=== PATIENT | male | born 1950 | race Two or more races ===

== ENCOUNTER 2019-03-06 22:57 | Inpatient (IN) | payer OTHER ==
[~2019-03-06] VITALS: Ht 182.9 cm; Wt 93.0 kg
[2019-03-10] MEDS ORDERED: LEVO-T25 MCG PO (11:25)
[2019-03-10] MEDS ORDERED: QUINAPRIL HCL20 MG PO (11:26)
[2019-03-10] MEDS ORDERED: CITALOPRAM HBR20 MG PO ×2 (11:26→13:27)
[2019-03-10] MEDS ORDERED: TAMSULOSIN HCL0.4 MG PO (13:27)
[2019-03-10] MEDS ORDERED: ASA-EC81 MG PO (13:27)
[2019-03-10] MEDS ORDERED: PANTOPRAZOLE SO40 MG PO (13:27)
[2019-03-10] MEDS ORDERED: LEVOTHYROXINE75 MCG PO (13:27)
[2019-03-10] MEDS ORDERED: LOSARTAN POTASS25 MG PO (13:27)
[2019-03-10] MEDS ORDERED: LIPITOR20 MG PO (13:27)
== END 2019-03-10 15:12 | disposition home or self-care (01) | DRG 884 ==
LOC: ER 22:57 → MEDI 03-07 14:34
PROVIDERS: ADMIT Internal Medicine
PROC: 4A12X4Z Monitoring of Cardiac Electrical Activity, External Approach (ICD-10-PCS; principal; 2019-03-07)
DX: F01.50 Vascular dementia, unspecified severity, without behavioral disturbance, psychotic disturbance, mood disturbance, and anxiety (principal); N17.8 Other acute kidney failure; F32.89 Other specified depressive episodes; E86.0 Dehydration; I12.9 Hypertensive chronic kidney disease with stage 1 through stage 4 chronic kidney disease, or unspecified chronic kidney disease; N18.1 Chronic kidney disease, stage 1; E78.49 Other hyperlipidemia; E11.9 Type 2 diabetes mellitus without complications; K21.9 Gastro-esophageal reflux disease without esophagitis; E03.8 Other specified hypothyroidism; N40.0 Benign prostatic hyperplasia without lower urinary tract symptoms; Z60.2 Problems related to living alone
CPT/HCPCS: 70545